=== PATIENT | male | born 1935 | race Caucasian/White ===

== ENCOUNTER 2017-07-03 10:06 | Outpatient (CLI) | payer MEDICARE, OTHER ==
[2017-07-03] MEDS ORDERED: IOPAMIDOL-300 50 ML VIAL PO ONE (20:03)
[2017-07-03] MEDS ORDERED: IOPAMIDOL-300 100 ML VIAL IVP ONE (20:03)
--- NOTE | 2017-07-04 09:20 | CT Report ---
EXAM: CT ABDOMEN AND PELVIS EXAM DATE: 07/03/2017 08:04 PM. CLINICAL HISTORY: MALIGNANT NEOPLASM OF PROSTATE. COMPARISONS: Abdomen pelvis CT dated 04/28/2016. TECHNIQUE: Routine helical CT imaging was performed through the abdomen and pelvis. IV contrast: 100 mL Isovue-300. Enteric contrast: Yes. Reconstructions: Coronal and sagittal. In accordance with CT protocol optimization, one or more of the following dose reduction techniques w ere utilized for this exam: automated exposure control, adjustment of mA and/or KV based on patient s ize, or use of iterative reconstructive technique. FINDINGS: Lung Bases: Unremarkable. Liver: Normal. No masses. Gallbladder/Bile Ducts: Unremarkable. Spleen: Normal. Pancreas: Normal. Adrenal Glands: Normal. Kidneys: Mild bilateral hydronephrosis persists without significant interval change. Hydroureter down the level of the neobladder is also redemonstrated and similar. Peritoneal Cavity/Bowel: No bowel obstruction or inflammatory process associated with the bowel. Righ t inguinal lymph node is decreased in size measuring 2.2 x 0.8 cm, previously 2.9 x 1.0 cm (series 4, image 71) and the spiculated mass in the posterior aspect of the pelvis is also decreased in size me asuring 2.5 x 1.5 cm, previously 2.9 x 1.6 cm (series 4, image 67). Pelvic Organs: The patient is status post prostatectomy and cystectomy with right lower quadrant neob ladder and urostomy. Vasculature: No aneurysms or other significant abnormality. Bones: Severe degenerative changes in the lumbar spine with dextroscoliosis of the thoracolumbar spin e. Other: None. IMPRESSION: 1. Status post prostatectomy and cystectomy with right lower quadrant neobladder and urostomy. Persis tent bilateral mild hydronephrosis and hydroureter. 2. Decreased size of the right posterior pelvis mass measuring up to 2.5 x 1.5 cm, previously 2.9 x 1 .6 cm and decreased size of the right inguinal lymph node measuring up to 2.2 x 0.8 cm, previously 2. 9 x 1.0 cm. [facility] Referring Provider Line: [phone] SITE ID: [id number]
--- NOTE | 2017-07-04 09:33 | CT Report ---
EXAM: CT CHEST EXAM DATE: 07/03/2017 08:04 PM. CLINICAL HISTORY: MALIGNANT NEOPLASM OF PROSTATE. COMPARISONS: Chest CT dated 11/18/2016. TECHNIQUE: Routine helical CT imaging was performed through the chest. IV contrast: 100 mL Isovue 300 . Reconstructions: Coronal and sagittal. In accordance with CT protocol optimization, one or more of the following dose reduction techniques w ere utilized for this exam: automated exposure control, adjustment of mA and/or KV based on patient s ize, or use of iterative reconstructive technique. FINDINGS: Lungs/Pleura: Irregular focal groundglass opacities measuring up to at least 8 mm in the anterior asp ect of the right lower lobe (series 3, image 38). There is a 5 mm rounded groundglass opacity in the anterior-inferior aspect of the right lower lobe (series 3, image 50). There is a 4 mm, previously 4 mm pulmonary nodule in the right lung base (series 3, image 33). Mediastinum: Normal. No adenopathy or masses. The heart and great vessels are normal. Bones: Unremarkable. Visualized Abdomen: Unremarkable. Other: None. IMPRESSION: 1. Focal groundglass opacities in the right lower lobe some of which are similar in size and some of which are new are nonspecific and can be seen in the setting of inflammatory or infectious etiology. However, given the patient's history metastatic disease cannot be entirely excluded and close attenti on on follow-up imaging is recommended. 2. No lymphadenopathy in the chest. [facility] Referring Provider Line: [phone] SITE ID: [id number]
== END 2017-07-03 10:07 | disposition home or self-care (01) ==
LOC: DI 10:06
PROVIDERS: ATTEND Nurse Practitioner Gerontology
DX: C61 Malignant neoplasm of prostate (principal); Z90.79 Acquired absence of other genital organ(s); N13.30 Unspecified hydronephrosis; N13.4 Hydroureter; R91.8 Other nonspecific abnormal finding of lung field
CPT/HCPCS: 71260; 74177; Q9967

== ENCOUNTER 2017-07-05 08:52 | Outpatient (CLI) | payer MEDICARE, OTHER ==
--- NOTE | 2017-07-05 15:53 | Nuclear Medicine Report ---
EXAM: BONE SCAN EXAM DATE: 07/05/2017 01:15 PM. CLINICAL HISTORY: Prostatic carcinoma. No new bone pain/surgeries. Possible falls. COMPARISON: Prior bone scan 11/18/2016. TECHNIQUE: Following the intravenous administration of 31.5 mCi of technetium 99m MDP and an appropri ate delay, a whole-body scan was performed in anterior and posterior projections. Site-specific spot views of the region of interest were obtained in various projections. FINDINGS: Exam Quality: Normal overall osseous radiotracer uptake. Physiological tracer uptake in bilateral col lecting systems. Skull: No focal uptake. Thorax: There are foci of increased tracer uptake at the costochondral junctions of the left fourth a nd fifth ribs, and the right sixth, seventh and eighth ribs. The findings are consistent with prior t rauma. Pelvis: No focal lesions. Spine: There is moderately increased tracer uptake in the lumbar spine consistent with the patient's degenerative scoliosis. There is also moderately increased tracer uptake in the T8 vertebral body, wh ere there is a compression fracture visible on the CT from 07/03/2017. IMPRESSION: 1. No foci of abnormal tracer uptake to suggest metastatic disease. 2. Tracer uptake in the anterior left and right ribs at the costochondral junctions consistent with p rior trauma. 3. Compression fracture of uncertain age at T8. 4. There is moderately increased tracer uptake throughout the lumbar spine consistent with osteoarthr itis. [facility] Referring Provider Line: [phone] SITE ID: [id number]
== END 2017-07-05 08:53 | disposition home or self-care (01) ==
LOC: DI 08:52
PROVIDERS: ATTEND Nurse Practitioner Gerontology
DX: C61 Malignant neoplasm of prostate (principal); M48.54XA Collapsed vertebra, not elsewhere classified, thoracic region, initial encounter for fracture; M47.893 Other spondylosis, cervicothoracic region
CPT/HCPCS: 78306; A9503